=== PATIENT | male | born 2000 | race Caucasian/White ===

== ENCOUNTER 2024-02-10 18:13 | Emergency (ER) | payer BC ==
[2024-02-10 18:23] VITALS: BP 120/74; PULSE 104; RESP 18; TEMP 98; BMI 25.4
[2024-02-10] MEDS: SODIUM CHLORIDE 1,000 ML IV STA (19:01)
[2024-02-10 19:07] LABS: EPI CELLS 8 /uL (0-25.1); HYALINE CASTS 1 /uL (0-3.1); PH,URINE 6.5 (5.0-8.0); URINE APPEARANCE Error; URINE BACTERIA 2 /uL (0-1359); URINE BILIRUBIN NEGATIVE (NEGATIVE); URINE COLOR YELLOW; URINE GLUCOSE (UA) NEGATIVE (NEGATIVE); URINE KETONE TRACE (NEGATIVE); URINE LEUK ESTERASE NEGATIVE (NEGATIVE); URINE NITRITE NEGATIVE (NEGATIVE); URINE PROTEIN 1+ (NEGATIVE); URINE RBC 14 /uL (0-23.9); URINE WBC 9 /uL (0-25.8)
[2024-02-10 19:17] LABS: CHLORIDE 101 mmol/L (98-107); POTASSIUM 3.5 mmol/L (3.5-5.1); SODIUM 131 mmol/L (136-145)
[2024-02-10 19:20] LABS: ANION GAP 4 mmol/L (4-13); CO2 26 mmol/L (21-32); GLUCOSE,RANDOM 190 mg/dL (74-106)
[2024-02-10 19:23] LABS: CREATININE 1.1 mg/dL (0.55-1.3); LDL CHOLESTEROL (ONLY SJRH) 150 mg/dL (5-100)
[2024-02-10 19:25] LABS: HDL CHOLESTEROL 25 mg/dL (40-60)
[2024-02-10 19:28] LABS: CHOLESTEROL 276 mg/dL (50-200)
[2024-02-10 19:51] LABS: ALBUMIN 4.2 g/dl (3.4-5.0); ALK PHOS 46 U/L (45-117); BILIRUBIN,TOTAL 1.3 mg/dL (0.2-1); BLOOD UREA NITROGEN 10.8 mg/dL (7-18); CALCIUM 6.1 mg/dL (8.5-10.1); TOT PROT 7.3 g/dl (6.4-8.2)
[2024-02-10 20:31] LABS: BASO % 0.4 % (0-2.0); EOS % 0.2 % (0-4.5); HEMATOCRIT 35.4 % (35.4-49); HEMOGLOBIN 11.8 GM/dL (11.7-16.9); LYMPH % 7.8 % (8-40); MCH 20.1 pg (25.7-33.7); MCHC 33.2 g/dl (32.0-35.9); MEAN CELL VOLUME 60.6 fl (80-96); MEAN PLT VOLUME 9.3 fl (7.5-11.1); MONO % 7.3 % (3.8-10.2); NEUT % 84.3 % (42.8-82.8); PLATELET COUNT 258 10^3/uL (134-434); RBC 5.85 M/mm3 (4.00-5.60); RDW 16.4 % (11.9-15.9)
[2024-02-10 20:35] LABS: WHITE BLOOD COUNT 11.1 K/mm3 (4.0-10.0)
[2024-02-10 21:11] LABS: ANISOCYTOSIS 2+; MACROCYTOSIS 0; TARGET CELLS 1+
[2024-02-10 21:19] LABS: SGOT/AST 30 U/L (15-37); SGPT/ALT 70 U/L (13-61)
== END 2024-02-10 21:37 | disposition home or self-care (01) ==
LOC: JER 18:13
PROC: 3E0337Z Introduction of Electrolytic and Water Balance Substance into Peripheral Vein, Percutaneous Approach (ICD-10-PCS; principal; 2024-02-10)
DX: R10.10 Upper abdominal pain, unspecified (principal); R11.0 Nausea; R09.81 Nasal congestion; R42 Dizziness and giddiness; E78.01 Familial hypercholesterolemia; K85.90 Acute pancreatitis without necrosis or infection, unspecified; Z20.822 Contact with and (suspected) exposure to COVID-19
CPT/HCPCS: 0241U-QW; 36415; 74177-TC; 76705-TC; 80053; 80061; 81003; 83605; 83690; 84484; 85025; 93005; 93010; 99285-25; Q9967